=== PATIENT | female | born 1955 | race Caucasian/White ===

== ENCOUNTER 2018-02-14 18:51 | Emergency (ER) | payer OTHER ==
[2018-02-14 19:40] LABS: #Basophils 0.1 thou/uL (0.0-0.2); #Eosinphils 0.2 thou/uL (0.0-0.7); #Lymphocytes 2.1 thou/uL (1.20-3.40); #Monocytes 0.4 thou/uL (0.11-0.59); %Basophils 1.1 % (0.0-1.0); %Eosinophils 2.9 % (0.0-10.0); %Lymphocytes 31.4 % (21.0-51.0); %Monocytes 5.5 % (0.0-10.0); %Neutrophils 59.1 % (42.0-75.0); Hemoglobin 13.4 g/dL (12.0-16.0); Mean Corpuscular HGB CONC 32.5 g/dL (32.0-36.0); Mean Corpuscular Hemoglobin 28.7 pg (27.0-31.0); Mean Corpuscular Volume 88.3 fL (78.0-98.0); Mean Platelet Volume 8.4 fL (7.4-10.4); Platelet Count 246 thou/uL (130-400); Red Blood Cell (RBC) Count 4.67 mill/uL (4.20-5.40); White Blood Cell (WBC) Count 6.7 thou/uL (4.8-10.8)
[2018-02-14 19:43] LABS: ALT (SGPT) 15 U/L (8-55); AST (SGOT) 14 U/L (5-34); Albumin 4.3 g/dL (3.5-5.0); Alkaline Phosphatase 90 U/L (40-150); Anion Gap 14 mmol/L (10-20); BUN (Urea Nitrogen) 10 mg/dL (9.8-20.1); Bilirubin, Total 0.5 mg/dL (0.2-1.2); Calc. Creatinine Clearance 0 mL/min (70-130); Calcium 9.4 mg/dL (7.8-10.44); Carbon Dioxide 25 mmol/L (22-29); Chloride 105 mmol/L (98-107); Estimated GFR-MDRD 63; Globulin 2.8 g/dL (2.4-3.5); Glucose 120 mg/dL (70-105); Potassium 4.1 mmol/L (3.5-5.1); Protein, Total 7.1 g/dL (6.0-8.3); Sodium 140 mmol/L (136-145)
[2018-02-14] MEDS ORDERED: Albuterol Sulfate 2.5 mg/0.5 ml Neb ONE (19:55)
[2018-02-14] MEDS ORDERED: Sodium Chloride For Inhalation 0.9% 3 ML NEB ONE (19:55)
--- NOTE | 2018-02-14 20:46 | RAD ---
TWO VIEWS OF THE CHEST: 02/14/18 COMPARISON: 06/23/15 HISTORY: Shortness of breath and cough. FINDINGS: Two views of the chest show normal sized cardiomediastinal silhouette. There is no evidence of consol idation, mass, or pleural effusion. The bones are unremarkable. IMPRESSION: No evidence of acute cardiopulmonary disease. POS: [facility]
[2018-02-14] MEDS ORDERED: predniSONE 20 MG TAB ONE (20:50)
[2018-02-14] MEDS ORDERED: Azithromycin 250 MG TAB ONE (20:50)
== END 2018-02-14 21:00 | disposition home or self-care (01) ==
LOC: NAV ERS 18:51
DX: R06.02 Shortness of breath (principal); R05 Cough
CPT/HCPCS: 71046; 80053; 83605; 85025; 87804; 93005; 94640; 94760; J7506; J7611

== ENCOUNTER 2018-07-17 06:26 | Emergency (ER) | payer OTHER ==
--- NOTE | 2018-07-17 08:23 | RAD ---
TWO VIEWS OF THE CHEST: COMPARISON: 02/14/2018. HISTORY: Cough and congestion. FINDINGS: Two views of the chest show normal sized cardiomediastinal silhouette. There is no evidence of consol idation, mass, or pleural effusion. The bones are unremarkable. IMPRESSION: No evidence of acute cardiopulmonary disease. POS: [facility]
== END 2018-07-17 08:11 | disposition home or self-care (01) ==
LOC: NAV ERS 06:26
DX: R05 Cough (principal)
CPT/HCPCS: 71046; 93005; 94640; J7620